=== PATIENT | female | born 1985 | race Two or more races ===

== ENCOUNTER 2017-04-17 11:31 | Emergency (ER) | payer SELFPAY ==
[2017-04-17] MEDS ORDERED: HYDROmorphONE/DILAUDID 1 MG/ML INJ ONE (12:01)
[2017-04-17] MEDS ORDERED: ONDANSETRON 4 MG/2 ML VIAL ONE (12:01)
[2017-04-17] MEDS ORDERED: ONDANSETRON 4 MG/2 ML VIAL IVP ONE (12:05)
[2017-04-17] MEDS ORDERED: NS 1,000 ML IV ONE ×2 (12:07→12:24)
[2017-04-17] MEDS ORDERED: HYDROmorphONE/DILAUDID 1 MG/ML INJ IVP ONE ×2 (12:15→12:24)
[2017-04-17] MEDS ORDERED: KETOROLAC 30 MG/1 ML SDV IVP ONE (12:24)
[2017-04-17 12:29] LABS: % IMMATURE GRANULYOCYTES 0.4 % (0.0-1.1); ABSOLUTE IMMATURE GRANULOCYTES 0.06 10^3/uL (0.00-0.10); ADD DIFF? NO; ADD MORPH? NO; ADD SCAN? NO; ATYPICAL LYMPHOCYTE FLAG 0 (0-99); FRAGMENT RBC FLAG 0 (0-99); HEMATOCRIT 40.8 % (38.0-47.0); HEMOGLOBIN 13.9 g/dL (12.6-16.3); LEFT SHIFT FLG 10 (0-99); LIPEMIA HEMOLYSIS FLAG 90 (0-99); MEAN CELL HEMOGLOBIN 28.8 pg (27.9-34.1); MEAN CELL HEMOGLOBIN CONCENTR. 34.1 g/dL (32.4-36.7); MEAN CELL VOLUME 84.6 fL (81.5-99.8); MEAN PLATELET VOLUME 9.5 fL (8.7-11.7); PLATELET CLUMPS FLAG 10 (0-99); PLATELET COUNT 210 10^3/uL (150-400); RED BLOOD CELL COUNT 4.82 10^6/uL (4.18-5.33); RED CELL DISTRIBUTION WIDTH 12.4 % (11.5-15.2)
--- NOTE | 2017-04-17 12:30 | EDPHY ---
H & P Stated Complaint: l sided back pain x 2 days unknown inj Time Seen by Provider: 04/17/17 11:58 - Personal History LMP (Females 10-55): 15-21 Days Ago Current Tetanus/Diphtheria Vaccine: Unsure - Medical/Surgical History Hx Asthma: No Hx Chronic Respiratory Disease: No Hx Diabetes: No Hx Cardiac Disease: No Hx Renal Disease: No Hx Cirrhosis: No Hx Alcoholism: No Hx HIV/AIDS: No Hx Splenectomy or Spleen Trauma: No Other PMH: choly - Social History Smoking Status: Never smoked Constitutional: Initial Vital Signs Temperature (C) 36.4 C 04/17/17 11:37 Heart Rate 102 H 04/17/17 11:37 Respiratory Rate 20 04/17/17 11:37 Blood Pressure 111/81 H 04/17/17 11:37 O2 Sat (%) 96 04/17/17 11:37 O2 Delivery Mode Nasal Cannula O2 (L/minute) 2 Allergies/Adverse Reactions: No Known Allergies Allergy (Unverified 04/17/17 11:37) Home Medications: Medication Instructions Recorded Cephalexin [Keflex (RX)] 500 mg PO TID #30 cap 04/17/17 HYDROcodone/APAP 10/325 [[place] 1 - 2 each PO Q4-6PRN PRN #20 tab 04/17/17 10/325] IBUPROFEN 04/17/17 Ondansetron Odt [Zofran Odt 4 mg 4 mg PO Q4 PRN #10 tab 04/17/17 (RX)] Medical Decision Making - Diagnostics Imaging Results: Imaging Impressions Abdomen/Pelvis CT 04/17/17 12:24 Impression: There is asymmetrical edema around the left kidney and proximal left ureter. The left kidney appears mildly swollen compared to that on the right. Both kidneys are 11.7 cm in length and unobstructed. There is no evidence for nephro or ureterolithiasis. The left renal vein looks slightly larger and has indistinct margins compared to that on the right. The lung bases heart, liver, spleen, pancreas, adrenal glands, right kidney and mesentery look normal. There is no evidence of a bowel obstruction, free fluid or free air. Both ovaries are prominent in size the right measuring 4.4 x 2.9 cm and the left 3.1 x 2.4 cm. Impression: 1. Left pyelo-nephritis versus renal vein thrombosis. Consider CT with IV contrast, during the arterial and 90 second venous phase, for further evaluation. 2. Prominent ovaries, possibly PCOD. Results discussed with Dr. Plata. General information for patients regarding this examination can be found at [email or web address]. If you have questions or comments about this report, please contact me at [phone] (hospital) or [phone] (cell). ED Course/Re-evaluation: CHIEF COMPLAINT: This left flank pain fevers and chills HISTORY OF PRESENT ILLNESS: 32-year-old female with keyliner present. She has left flank pain radiating around toward her side but not to the groin. She has some nausea and fevers and chills that started Friday night and woke her from sleep. She denies any other symptoms. She has never had this before. REVIEW OF SYSTEMS: A 10 point review of systems was performed and is negative with the exception of the elements mentioned in the history of present illness. PHYSICAL EXAM: HR, BP, O2 Sat, RR. Temp noted General Appearance: Alert, well hydrated, appropriate, and non-toxic appearing. Head: Atraumatic without scalp tenderness or obvious injury Eyes: Pupils equal, round, reactive to light and accommodation, EOMI, no trauma , no injection. Ears: Clear bilaterally, no perforation, normal landmarks Nose: Atraumatic, no rhinorrhea, clear. Throat: There is no erythema or exudates, no lesions, normal tonsils, mucus membranes moist. Neck: Supple, 2+ carotid upstroke, nontender, no lymphadenopathy. Respiratory: No retractions, no distress, no wheezes, and no accessory muscle use. Lungs are clear to auscultation bilaterally. Cardiovascular: Regular rate and rhythm, no murmurs, rubs, or gallops. Bilateral carotid, radial, dorsalis pedis, and posterior tibial pulses intact. Good capillary refill all extremities. Gastrointestinal: Abdomen is soft, nontender, non-distended, no masses, no rebound, no guarding, no peritoneal signs. Musculoskeletal: Normal active ROM of all extremities, atraumatic. Neurological: Alert, appropriate, and interactive. The patient has normal DTRs and non-focal cranial nerves, motor, sensory, and cerebellar exam. Skin: No rashes, good turgor, no nodules on palpation. Past medical history: None Past surgical history: None Family history: Noncontributory Social history: Employed, does not abuse tobacco drugs or alcohol DIAGNOSTICS/PROCEDURES/CRITICAL CARE TIME: Study: CT of the abdomen pelvis without contrast rule out kidney stone on the left Indication: flank pain with blood in her urine Results: CT scan of the abdomen and pelvis was obtained. The results of the study are consistent with a left pyelonephritis. The study was read by the radiologist, Dr. Cornelio Cole. I viewed the images myself on the PACS system. DIFFERENTIAL DIAGNOSIS: The differential diagnosis for the patient's flank pain included but was not limited to musculoskeletal causes, kidney stone, pyelonephritis, shingles, diverticulitis, appendicitis, and aortic aneurysm. MEDICAL DECISION MAKING: This patient is nontoxic. She is having severe flank pain with some nausea fevers and chills. She may have a kidney stone and pyelonephritis it is unclear at this time but her urine dip does show trace leukocytes and positive blood cells. Formal laboratory studies and CT are pending . This patient has CT consistent with left pyelonephritis. She has an elevated white blood cell count. There is no evidence of a kidney abscess or kidney stone or obstructive uropathy. She also has a large ovaries which is an incidental finding and she will follow up with her OBGYN for that purpose. I have treated her with ceftriaxone intravenously already and I will keep her on cephalexin and give her pain pills and anti nausea medicine to take home and follow up with her primary care doctor. This patient feels hot and cold still but her pain is completely resolved and she is doing much better and she is able to tolerate oral fluids. I have offered admission but she would prefer to try and go home. She is visiting family from [place]. She will return here if she gets any worse. - Data Points Laboratory Results: Laboratory Results 04/17/17 12:00 04/17/17 12:00 04/17/17 04/17/17 04/17/17 12:00 12:00 11:50 WBC 15.87 10^3/uL H 10^3/uL (3.80-9.50) RBC 4.82 10^6/uL 10^6/uL (4.18-5.33) Hgb 13.9 g/dL g/dL (12.6-16.3) Hct 40.8 % % (38.0-47.0) MCV 84.6 fL fL (81.5-99.8) MCH 28.8 pg pg (27.9-34.1) MCHC 34.1 g/dL g/dL (32.4-36.7) RDW 12.4 % % (11.5-15.2) Plt Count 210 10^3/uL 10^3/uL (150-400) MPV 9.5 fL fL (8.7-11.7) Neut % (Auto) 85.3 % H % (39.3-74.2) Lymph % (Auto) 4.9 % L % (15.0-45.0) [place] % (Auto) 9.3 % % (4.5-13.0) Eos % (Auto) 0.0 % L % (0.6-7.6) Baso % (Auto) 0.1 % L % (0.3-1.7) Nucleat RBC Rel Count 0.0 % % (0.0-0.2) Absolute Neuts (auto) 13.54 10^3/uL H 10^3/uL (1.70-6.50) Absolute Lymphs (auto) 0.78 10^3/uL L 10^3/uL (1.00-3.00) Absolute Monos (auto) 1.47 10^3/uL H 10^3/uL (0.30-0.80) Absolute Eos (auto) 0.00 10^3/uL L 10^3/uL (0.03-0.40) Absolute Basos (auto) 0.02 10^3/uL 10^3/uL (0.02-0.10) Absolute Nucleated RBC 0.00 10^3/uL 10^3/uL (0-0.01) Immature Gran % 0.4 % % (0.0-1.1) Immature Gran # 0.06 10^3/uL 10^3/uL (0.00-0.10) Sodium 134 mEq/L mEq/L (134-144) Potassium 4.0 mEq/L mEq/L (3.5-5.2) Chloride 98 mEq/L mEq/L (97-110) Carbon Dioxide 21 mEq/l L mEq/l (22-31) Anion Gap 15 mEq/L mEq/L (8-16) BUN 8 mg/dL mg/dL (7-23) Creatinine 0.6 mg/dL mg/dL (0.6-1.0) Estimated GFR > 60 Glucose 163 mg/dL H mg/dL (70-100) Calcium 8.4 mg/dL L mg/dL (8.5-10.4) Urine Color YELLOW Urine Appearance CLEAR Urine pH 6.0 (5.0-7.5) Ur Specific [place] 1.015 (1.002-1.030) Urine Protein 1+ H (NEGATIVE) Urine Ketones NEGATIVE (NEGATIVE) Urine Blood 1+ H (NEGATIVE) Urine Nitrate NEGATIVE (NEGATIVE) Urine Bilirubin NEGATIVE (NEGATIVE) Urine Urobilinogen 4.0 EU H EU (0.2-1.0) Ur Leukocyte Esterase NEGATIVE (NEGATIVE) Urine RBC 5-10 /hpf H /hpf (0-3) Urine WBC 15-25 /hpf H /hpf (0-3) Ur Epithelial Cells TRACE /lpf /lpf (NONE-1+) Urine Bacteria 4+ /hpf H /hpf (NONE SEEN) Urine Glucose NEGATIVE (NEGATIVE) Medications Given: Discontinued Medications Acetaminophen (Tylenol) 1,000 mg PO EDNOW ONE Stop: 04/17/17 13:06 Last Admin: 04/17/17 13:06 Dose: 1,000 mg Hydromorphone HCl (Dilaudid) 1 mg IVP EDNOW ONE Stop: 04/17/17 12:16 Last Admin: 04/17/17 12:16 Dose: 1 mg Sodium Chloride (Ns) 1,000 mls @ 3,000 mls/hr IV ONCE ONE Stop: 04/17/17 12:26 Last Admin: 04/17/17 12:08 Dose: 1,000 mls Ceftriaxone Sodium/Dextrose (Rocephin 1 Gm (Premix)) 50 mls @ 100 mls/hr IV EDNOW ONE PRN Reason: Protocol Stop: 04/17/17 13:22 Last Admin: 04/17/17 12:59 Dose: 50 mls Ketorolac Tromethamine (Toradol) 30 mg IVP EDNOW ONE Stop: 04/17/17 12:25 Last Admin: 04/17/17 12:37 Dose: 30 mg Ondansetron HCl (Zofran) 4 mg IVP EDNOW ONE Stop: 04/17/17 12:06 Last Admin: 04/17/17 12:08 Dose: 4 mg Departure - Departure Disposition: Home, Routine, Self-Care Clinical Impression: Acute pyelonephritis Condition: Good Instructions: Urinary Tract Infection in Women (ED), Kidney Infection (ED) Prescriptions: Cephalexin [Keflex (RX)] 500 mg PO TID #30 cap HYDROcodone/APAP 10/325 [[place] 10/325] 1 - 2 each PO Q4-6PRN PRN #20 tab PRN Reason: Pain, Moderate Ondansetron Odt [Zofran Odt 4 mg (RX)] 4 mg PO Q4 PRN #10 tab PRN Reason: Nausea/Vomiting, Use 1st Print Language: Occitan
[2017-04-17 12:41] LABS: BACTERIA 4+ /hpf (NONE SEEN); COLOR YELLOW; LEUKOCYTE ESTERASE,URINE NEGATIVE (NEGATIVE); NITRITE,URINE NEGATIVE (NEGATIVE); WBC,URINE 15-25 /hpf (0-3)
[2017-04-17 12:43] LABS: ANION GAP 15 mEq/L (8-16); CALCIUM 8.4 mg/dL (8.5-10.4); CARBON DIOXIDE 21 mEq/l (22-31); CHLORIDE 98 mEq/L (97-110); CREATININE 0.6 mg/dL (0.6-1.0); GLOMERULAR FILTRATION RATE > 60; GLUCOSE 163 mg/dL (70-100); SODIUM 134 mEq/L (134-144)
[2017-04-17] MEDS ORDERED: ACETAMINOPHEN 500 MG TAB ONE (13:04)
[2017-04-17] MEDS ORDERED: ACETAMINOPHEN 500 MG TAB PO ONE (13:05)
[2017-04-17 14:35] VITALS: BP 112/76; PULSE 81; RESP 16; TEMP 98.6; O2SAT 97
== END 2017-04-17 14:36 | disposition home or self-care (01) ==
DX: N10 Acute pyelonephritis (principal)
CPT/HCPCS: 96374; J0696; J1170; J1885; J2405